=== PATIENT | female | born 1990 | race Caucasian/White ===

== ENCOUNTER → 2023-09-25 17:53 | Outpatient (REF) | payer OTHER, SELFPAY | LOC: MRI 3T 17:53 | PROVIDERS: ATTENDING PHYSICIAN Psychiatry & Neurology Neurology; FAMILY PHYSICIAN Family Medicine | DX: E34.8 Other specified endocrine disorders (principal); H53.2 Diplopia | CPT/HCPCS: 70544; 70553; A9575 ==

== ENCOUNTER → 2023-11-16 10:23 | Outpatient (REF) | payer OTHER, SELFPAY | LOC: HWRAD 10:23 | PROVIDERS: ATTENDING PHYSICIAN Neurological Surgery; FAMILY PHYSICIAN Family Medicine | DX: M89.9 Disorder of bone, unspecified (principal) | CPT/HCPCS: 70450 ==

== ENCOUNTER → 2024-08-07 09:23 | Outpatient (REF) | payer OTHER, SELFPAY | LOC: WDC 09:23 | PROVIDERS: ATTENDING PHYSICIAN Family Medicine | DX: N63.20 Unspecified lump in the left breast, unspecified quadrant (principal); Z98.890 Other specified postprocedural states; N63.23 Unspecified lump in the left breast, lower outer quadrant | CPT/HCPCS: 76642; 77062; 77066 ==